=== PATIENT | male | born 1980 | race Caucasian/White ===

== ENCOUNTER 2018-01-23 08:52 | Emergency (ER) | payer BC ==
[2018-01-23] MEDS: NS 500 ML IV ×2 (10:45)
[2018-01-23] MEDS: METOCLOPRAMIDE INJ 10MG/2ML VIAL (J2765) IV ×2 (10:45)
[2018-01-23] MEDS: methylPREDNISolone INJ 125 MG/2 ML VIAL (J2930) IV ×2 (10:45)
[2018-01-23] MEDS: KETOROLAC 30 MG/ML VIAL (J1885) IV ×2 (10:45)
== END 2018-01-23 11:53 | disposition home or self-care (01) ==
LOC: M ED 08:52
DX: R51 Headache (principal)
CPT/HCPCS: J1885